=== PATIENT | female | born 1960 | race Caucasian/White ===

== ENCOUNTER 2020-08-14 06:43 | Day surgery (SDC) | payer BC, SELFPAY ==
[~2020-08-14] VITALS: Ht 162.6 cm; Wt 88.8 kg
[~2020-08-14 06:43] MED LIST: ALBU90OI; ASCO1ER PO; C COMPLEX1000 M1 PO; CITA20 PO; CITALOPRAM PO; CYCL10 PO; DULCOLAX PO; DULO30 PO; ESCI10 PO; ESTR2 PO; L-Lysine500 M1 PO; LISI5 PO; METF500 PO; MULTIPLE VITAM1 EACH PO; MULVITA PO; OMEP20ER PO; PROAIR RESPICL90 MCG INH; PYRI100 PO; PYRI50 PO; THERA-D2000 UNIT PO; THERAPEUTIC M PO; Therapeutic M1 EAC4 PO; VARE1 PO; VICODIN 5-3001 EACH PO; Vitamin C100 M1 PO; Zofran4 MG PO
--- NOTE | 2020-08-14 08:46 | NUR ---
08/14/20 0846 Marta Bustillos 1 MG EPI ADDED TO EACH OF THE FIRST 3 BAGS OF LR FOR IRRIGATION PER ORDER.
--- NOTE | 2020-08-14 09:53 | NUR ---
08/14/20 0953 Chantelle Shrestha TRANSFERRED FROM PACU TO STEPDOWN. PT. CONTINUES TO BE DROWSY BUT IS AROUSABLE. PLACED ON O2 AT 2LNC FOR SATS DIPPING BELOW 90 WHILE PT. SLEEPING. PT. HAS SLEEP APNEA PER HISTORY. DENIES PAIN OR SOB. PROVIDED WITH DRINK AND SNACK. POLAR PACK APPLIED.
== END 2020-08-14 10:27 | disposition home or self-care (01) ==
LOC: ORSCSDS 06:43
PROVIDERS: Orthopaedic Surgery
PROC: 0LS34ZZ Reposition Right Upper Arm Tendon, Percutaneous Endoscopic Approach (ICD-10-PCS; principal; 2020-08-14 08:15)
PROC: 0RNJ4ZZ Release Right Shoulder Joint, Percutaneous Endoscopic Approach (ICD-10-PCS; principal; 2020-08-14 08:15)
PROC: 0LQ14ZZ Repair Right Shoulder Tendon, Percutaneous Endoscopic Approach (ICD-10-PCS; principal; 2020-08-14 08:15)
DX: M75.121 Complete rotator cuff tear or rupture of right shoulder, not specified as traumatic (principal); M75.21 Bicipital tendinitis, right shoulder; M75.41 Impingement syndrome of right shoulder; M75.31 Calcific tendinitis of right shoulder; E11.9 Type 2 diabetes mellitus without complications; I10 Essential (primary) hypertension; G47.33 Obstructive sleep apnea (adult) (pediatric); J45.909 Unspecified asthma, uncomplicated; Z87.891 Personal history of nicotine dependence; E66.9 Obesity, unspecified; Z68.33 Body mass index [BMI] 33.0-33.9, adult; Z79.899 Other long term (current) drug therapy; Z79.84 Long term (current) use of oral hypoglycemic drugs; E78.00 Pure hypercholesterolemia, unspecified
CPT/HCPCS: 82947; C1713; J0171; J0690; J1100; J1885; J2250; J2370; J2405; J2704; J3010; J7120